=== PATIENT | female | born 1940 ===

== ENCOUNTER → 2023-12-09 12:29 | Outpatient (REF) | payer OTHER, SELFPAY | LOC: MRI 3T 12:29 | PROVIDERS: ATTENDING PHYSICIAN Internal Medicine | DX: M71.22 Synovial cyst of popliteal space [Baker], left knee (principal) | CPT/HCPCS: 73721 ==

== ENCOUNTER 2024-04-03 18:30 | Emergency (ER) | payer OTHER, SELFPAY ==
[2024-04-03 18:35] VITALS: BP 179/113; BMI 20.1
[2024-04-03 18:47] LABS: % Basophils 0.5 % (0-2); % Immature Granulocytes 0.4 % (0-0.5); % Lymphocytes 23.4 % (20.5-51.1); % Monocytes 6.6 % (1.7-9.3); % Neutrophils 68.1 % (42.2-75.2); Absolute Basophils 0.1 10^3/uL (0-0.2); Absolute Eosinophils 0.1 10^3/uL (0-0.7); Absolute Lymphocytes 2.6 10^3/uL (1.2-3.4); Absolute Monocytes 0.7 10^3/uL (0.1-0.6); Absolute Neutrophils 7.6 10^3/uL (1.4-6.5); Hemoglobin 12.2 g/dL (12.0-16.0); Mean Corp Hgb Conc. 33.9 g/dL (33.0-37.0); Mean Corpuscular Hgb 27.8 pg (27.0-31.0); Mean Platelet Volume 9.7 fL (7.4-10.4); Nucleated Red Blood Cells % 0 %; Platelet Count 188 10^3/uL (130-400); Red Blood Cell Count 4.39 10^6/uL (4.20-5.40); Red Cell Dist. Width 13.2 % (11.5-14.5); White Blood Cell Count 11.1 10^3/uL (4.8-10.8)
[2024-04-03 18:54] VITALS: BP 159/113
[2024-04-03 19:01] LABS: ALT (SGPT) 20 U/L (0-35); AST (SGOT) 28 U/L (14-36); Albumin 4.5 g/dl (3.5-5.0); Alkaline Phosphatase 66 U/L (38-126); Blood Urea Nitrogen 17 mg/dl (7-17); Calcium 9.4 mg/dl (8.4-10.2); Carbon Dioxide 28 mmol/L (22-30); Chloride 96 mmol/L (98-107); Estimated Creatinine Clearance 43 ml/min; Glucose 97 mg/dl (70-99); Potassium 3.2 mmol/L (3.5-5.1); Sodium 134 mmol/L (135-145); Total Protein 6.8 g/dl (6.3-8.2); eGFR > 60.00
[2024-04-03 19:02] LABS: Lipase 53 U/L (23-300)
--- NOTE | 2024-04-03 19:05 | ED.GENMED ---
Addendum entered and electronically signed by Ofelia Rose NP 04/04/24 08:41:
Pt called asking what she could do about her constipation. Discussed all options: MOM, Bahman, Miralax, Metamucil, Mg Sulfate, to try, she denies abdominal pain but still has some pain across her mid back. CT yesterday showed no aortic dissection,
showed large volume of stool throughout the colon. Had small BM 2 days ago. She was appreciative of the information and will f/u with PCP if no results
Original Note:
History of Present Illness
<Marixa Miner PA-C - Last Filed: 04/03/24 22:08>
General
Chief Complaint: Abdominal Pain
Source: patient
Exam Limitations: none
Time Seen by Provider: 04/03/24 18:34
Nursing documentation reviewed up to this point in time: agreed with
History of Present Illness
History of Present Illness:
This is an 83-year-old female with a past medical history of rosacea on chronic doxycycline presenting to emergency department today with epigastric abdominal pain that radiates up into the chest. Patient states that this started around 4 hours ago.
Patient states that she was just relaxing at home when it happened and it was very sudden in onset. She rates her pain a 7/10. Patient also states that she has associated lower back pain. Patient also notes some mild associated nausea and
constipation but no vomiting, diarrhea. She denies shortness of breath, paresthesias, difficulty ambulating, syncopal episodes, melena. Of note, patient had surgery on her finger a few weeks ago and has been using aspirin, alieve multiple times
throughout the day, and daily to help manage her pain.
Review of Systems
<Marixa Miner PA-C - Last Filed: 04/03/24 22:08>
Review of Systems
All Other Systems: ROS reviewed and negative except as documented in HPI and ROS
Phy Exam
<Marixa Miner PA-C - Last Filed: 04/03/24 22:08>
Physical Exam
Physical Exam:
Vitals: Patient is acutely hypertensive
General: Patient well appearing in no acute distress
Skin: Warm and dry, no rashes or lesions
Head: Normocephalic, atraumatic
Eyes: Sclera non-icteric, EOMs intact, PERRLA.
Cardiac: Regular rate and rhythm, no murmurs. No tenderness to palpation of the external chest wall.
Pulm: Normal respiratory effort, no wheezes, rales, rhonchi
Abdomen: No abdominal tenderness to palpation, no pulsatile abdominal mass.
Musculoskeletal: No midline tenderness of the lumbar spine, no palpable deformities, no paraspinal tenderness.
Neuro: CN II-XII intact, no focal neurologic deficits.
Psychiatric: Appropriate mood and affect.
Course
<Marixa Miner PA-C - Last Filed: 04/03/24 22:08>
Orders/Labs/Results
Orders:
Orders
04/03/24 18:34
EKG [Electrocardiogram (*1)] Urgent
Reason for Study: Abdominal Pain
IV Insert/Care/Rem.- Treatment PRN
04/03/24 18:35
EKG- Treatment ONCE
04/03/24 18:38
Complete Blood Count/With Diff Urgent
Comprehensive Metabolic Panel Urgent
Lipase Urgent
Urinalysis Reflex To Culture Urgent
Date Specimen was Collected: 04/03/24
Time Specimen was Collected: 18:34
Urine Microscopic Reflex Cult Urgent
Urine Culture Urgent
RACHEL Source: U
Specimen Description:
Date Specimen was Collected: 04/03/24
Time Specimen was Collected: 18:34
04/03/24 18:41
Troponin I Urgent
04/03/24 18:57
CT Angio Abd/Pelvis w/wo IV [CT Abd/pelvis Angio W/wo Iv] Urgent
Comment:
Reason For Exam: epigastric abdominal pain radiating into chest
04/03/24 19:18
Acetaminophen [Tylenol] 1,000 mg PO NOW STA
04/03/24 20:59
EKG- Treatment ONCE
04/03/24 21:18
Troponin I Urgent
04/03/24 21:40
Electrocardiogram (*1) Urgent
Reason for Study: Chest Pain
Abnormal Lab Results
04/03/24
18:38
WBC 11.1 H 10^3/uL
(4.8-10.8)
Hct 36.0 L %
(37.0-47.0)
Absolute Neuts (auto) 7.6 H 10^3/uL
(1.4-6.5)
Absolute Monos (auto) 0.7 H 10^3/uL
(0.1-0.6)
Sodium 134 L mmol/L
(135-145)
Potassium 3.2 L mmol/L
(3.5-5.1)
Chloride 96 L mmol/L
(98-107)
Urine Ketones Trace A
(Negative)
Ur Occult Blood Reflex 2+ A
(Negative)
Leukocyte Esterase Rfl 1+ A
(Negative)
Urine RBC 3-6 A /HPF
(0-2)
Urine Bacteria (Reflex) Few A
(Negative)
04/03/24 18:38
04/03/24 18:38
Vital Signs
Initial and Last Documented VS:
Initial Vital Signs
Temp Pulse Resp BP Pulse Ox
98.5 F 95 17 179/113 98
04/03/24 18:35 04/03/24 18:35 04/03/24 18:35 04/03/24 18:35 04/03/24 18:35
Last Documented Vital Signs
Temp Pulse Resp BP Pulse Ox
98.5 F 83 15 139/99 97
04/03/24 18:35 04/03/24 21:15 04/03/24 21:15 04/03/24 20:42 04/03/24 19:45
<Vahe Vuong, DO - Last Filed: 04/03/24 21:09>
Orders/Labs/Results
Orders:
Orders
04/03/24 18:34
EKG [Electrocardiogram (*1)] Urgent
Reason for Study: Abdominal Pain
IV Insert/Care/Rem.- Treatment PRN
04/03/24 18:35
EKG- Treatment ONCE
04/03/24 18:38
Complete Blood Count/With Diff Urgent
Comprehensive Metabolic Panel Urgent
Lipase Urgent
Urinalysis Reflex To Culture Urgent
Date Specimen was Collected: 04/03/24
Time Specimen was Collected: 18:34
Urine Microscopic Reflex Cult Urgent
Urine Culture Urgent
RACHEL Source: U
Specimen Description:
Date Specimen was Collected: 04/03/24
Time Specimen was Collected: 18:34
04/03/24 18:41
Troponin I Urgent
04/03/24 18:57
CT Angio Abd/Pelvis w/wo IV [CT Abd/pelvis Angio W/wo Iv] Urgent
Comment:
Reason For Exam: epigastric abdominal pain radiating into chest
04/03/24 19:18
Acetaminophen [Tylenol] 1,000 mg PO NOW STA
04/03/24 20:59
EKG- Treatment ONCE
04/03/24 21:18
Troponin I Urgent
04/03/24 21:40
Electrocardiogram (*1) Urgent
Reason for Study: Chest Pain
Abnormal Lab Results
04/03/24
18:38
WBC 11.1 H 10^3/uL
(4.8-10.8)
Hct 36.0 L %
(37.0-47.0)
Absolute Neuts (auto) 7.6 H 10^3/uL
(1.4-6.5)
Absolute Monos (auto) 0.7 H 10^3/uL
(0.1-0.6)
Sodium 134 L mmol/L
(135-145)
Potassium 3.2 L mmol/L
(3.5-5.1)
Chloride 96 L mmol/L
(98-107)
Urine Ketones Trace A
(Negative)
Ur Occult Blood Reflex 2+ A
(Negative)
Leukocyte Esterase Rfl 1+ A
(Negative)
Urine RBC 3-6 A /HPF
(0-2)
Urine Bacteria (Reflex) Few A
(Negative)
04/03/24 18:38
04/03/24 18:38
Vital Signs
Initial and Last Documented VS:
Initial Vital Signs
Temp Pulse Resp BP Pulse Ox
98.5 F 95 17 179/113 98
04/03/24 18:35 04/03/24 18:35 04/03/24 18:35 04/03/24 18:35 04/03/24 18:35
Last Documented Vital Signs
Temp Pulse Resp BP Pulse Ox
98.5 F 83 15 139/99 97
04/03/24 18:35 04/03/24 21:15 04/03/24 21:15 04/03/24 20:42 04/03/24 19:45
<Marixa Miner PA-C - Last Filed: 04/03/24 22:08>
MDM/Problems Addressed
Differential Diagnosis Includes:
ddx AAA, gastritis, duodenitis, ACS, constipation, lumbar muscular sprain/strain,
MDM/Problems Addressed:
Chest pain/epigastric pain:
This is an 83-year-old female with a past medical history of rosacea on chronic doxycycline presenting to emergency department today with epigastric abdominal pain that radiates up into the chest. This was associated with low back pain as well.
Considering patient's acute hypertension, sudden severe onset of pain associated with back pain, CT scan of the abdomen and pelvis with IV contrast was performed which was negative for AAA or other acute intraabdominal pathology. Gastritis certainly
on the differential considering patient's recent frequent daily NSAID use. The daily naproxen could also be responsible for her elevated pressures today. Patient was given 1g of Tylenol. On reevaluation, her abdomen pain and chest pain subsided and
her BP came down. Doubt cardiac cause but will repeat troponin and EKG. Care transferred to Dr. Vuong at this point. Patient still complains of back pain, likely musculoskeletal in nature.
Acute Exacerbation and/or Progression of Chronic Illness:
n/a
<JARED Lopez Last Filed: 04/03/24 22:08>
*Pulse Oximetry
Patient hypoxic: no
*EKG
Interpreted by ED Provider?: Yes
EKG Intrepretation Date: 04/03/24
Interpretation: abnormal
Comparison EKG: no comparison EKG present
Heart Rate: 75
Rate: normal
Rhythm: sinus
Interval: normal interval and normal QT interval
QRS Pattern: normal QRS
*Repair Mechanic Interpretation
Rate: normal
Interpretation: normal
Heart Rate: 80
Rhythm: sinus
*Critical Care Note
Total Time (30-74mins, 75-104mins- exclusive of procedures): Not Applicable
Data Reviewed
Review of Other/Old Records Reveals: Records (no previous ER records to review) and Discharge Summary (no discharge summaries in [facility] to review)
Source: patient and records
Prescriptions/Medications Considered But Not Given:
Considered PPI/Carafate
Further Testing Considered But Not Given:
n/a
<JARED Lopez Filed: 04/03/24 22:08>
Patient Management
Social determinants of health affecting care: Strong social support
Escalation/DeEscalation of care consider admission/obs:
admit not indicated
<Marixa Miner PA-C - Last Filed: 04/03/24 22:08>
Update Note
Update Note:
8:56 pm-- Patient's chest pain and abdominal pain has completely resolved. Patient now just complains of some mild back pain. Will plan for repeat troponin and EKG. Care transferred to Dr. Vuong.
ED Attending Note
<Marixa Miner PA-C - Last Filed: 04/03/24 22:08>
-
Portions of this chart may have been created with voice recognition software.� Occasional wrong word or��sound alike� substitutions may have occurred due to the inherent limitations of voice recognition software.
<Vahe Vuong DO - Last Filed: 04/03/24 21:09>
ED Attending Note
Patient seen and examined by attending physician: Yes
I performed the substantive portion of visit, reviewed & personally made and approve the management plan that is documented in note by myself or MATT.: Yes
Discharge Plan
Departure
Condition: Good
Discharge Problem:
Back pain
Instructions: Back Pain, BLOOD PRESSURE
Referrals:
Panchito Rizzo MD [Family Provider] -
Activity Restrictions/Additional Instructions:
Your blood pressure was elevated today. Please schedule a follow up appointment with your primary care provider to address this issue.
The next time you can take Tylenol is 11:18 pm. Tomorrow, you can take one 325 mg tablet to 1 g orally every 4-6 hours as needed. Do not exceed more than 1 g in a single dose. Do not exceed more than 4 g in 24 hours.
Please return to the emergency department should you experience chest pain again, shortness of breath, persistent abdominal pain, intractable vomiting, fevers or chills, weakness, difficulty breathing, confusion, lightheadedness, syncopal episodes,
difficulty ambulating, or any other signs or symptoms concerning to you.
Interventions
Interventions:
*General Assessment Last Done: 04/03/24 18:35
*Neglect/Abuse Screening Last Done: 04/03/24 18:35
ED- Fall Risk Assessment Last Done: 04/03/24 18:47
PM-Ywdjti-Pdceiqjldf Assessment Last Done: 04/03/24 18:47
Discharge Date and Time
Print Language: LITHUANIAN
[2024-04-03 19:12] LABS: Troponin I < 0.012 ng/ml
[2024-04-03 19:19] VITALS: BP 166/100
[2024-04-03 19:21] LABS: Urine Albumin Negative (Neg - Trace); Urine Bilirubin Negative (Negative); Urine Character Clear (Clear); Urine Color Yellow; Urine Glucose Negative (Negative); Urine Ketone Trace (Negative); Urine Leukocyte 1+ (Negative); Urine Nitrite Negative (Negative); Urine Occult Blood 2+ (Negative); Urine Urobilinogen Negative (Neg - 1+)
[2024-04-03] MEDS: TYLENOL 1000 MG PO (19:37)
[2024-04-03 19:40] LABS: Urine Bacteria Few (Negative)
[2024-04-03 20:42] VITALS: BP 139/99
[2024-04-03 21:50] LABS: Troponin I < 0.012 ng/ml
[2024-04-03 22:09] VITALS: BP 140/97
== END 2024-04-03 22:26 | disposition home or self-care (01) ==
LOC: EMR 18:30
PROVIDERS: Physician Assistant; EMERGENCY PHYSICIAN Emergency Medicine; FAMILY PHYSICIAN Internal Medicine
DX: M54.50 Low back pain, unspecified (principal); R10.13 Epigastric pain; R07.89 Other chest pain; R11.0 Nausea; K59.00 Constipation, unspecified; L71.9 Rosacea, unspecified; Z98.890 Other specified postprocedural states; Z88.0 Allergy status to penicillin
CPT/HCPCS: 99285; 74174; 80053; 81003; 81015; 83690; 84484; 85025; 87086; 93005; Q9967

== ENCOUNTER 2024-04-11 21:43 | Emergency (ER) | payer OTHER, SELFPAY ==
[2024-04-11 21:45] VITALS: BP 176/99
[2024-04-12] MEDS: FLEET PHOSPHATE ENEMA-ADULT 135 ML RECTAL (00:12)
--- NOTE | 2024-04-12 00:42 | ED.GENMED ---
History of Present Illness
General
Chief Complaint: Back Pain
Source: patient
Exam Limitations: none
Time Seen by Provider: 04/11/24 23:09
Nursing documentation reviewed up to this point in time: agreed with
History of Present Illness
History of Present Illness:
Patient diagnosed with lumbar compression fracture recently, taking tramadol along with other pain medications prescribed by her primary care physician, presents ED secondary to continual pain. In addition, patient reports that x-ray as an
outpatient also revealed significant constipation, and states that she has not had normal bowel movement recently. However, patient denies fever or chills. Denies abdominal pain. Denies nausea vomiting. Denies loss of appetite.
Review of Systems
Review of Systems
Allergies reviewed?: Yes
All Other Systems: ROS reviewed and negative except as documented in HPI and ROS
Constitutional: Reports no symptoms
Cardiac: Reports no symptoms
ABD/GI: Reports constipated; Denies abdominal pain, vomiting or diarrhea
: Reports no symptoms; Denies incontinence
Musculoskeletal: Reports back pain
Skin: Reports no symptoms
Neurological: Reports no symptoms; Denies weakness
Phy Exam
Physical Exam
Physical Exam:
Physical Exam
General: no apparent distress, not acutely ill. afebrile
Head: nc/at. eomi
Neck: supple. no meningeal signs.
Abdomen: normal bowel sounds. not tender.
Neuro: alert and oriented. no focal neurological deficits
Skin: no rash
Psychiatric: well kept. interactive and cooperative
Extremities: no edema. no calf tenderness.
Course
Orders/Labs/Results
Orders:
Orders
04/12/24 00:05
Phosphate Enema [Fleet Phosphate Enema-Adult] 135 ml RECTAL NOW STA
04/12/24 00:49
Magnesium Citrate [Citroma] 300 ml PO ONCE ONE
Vital Signs
Initial and Last Documented VS:
Initial Vital Signs
Temp Pulse Resp BP Pulse Ox
98.3 F 100 20 176/99 99
04/11/24 21:45 04/11/24 21:45 04/11/24 21:45 04/11/24 21:45 04/11/24 21:45
Last Documented Vital Signs
Temp Pulse Resp BP Pulse Ox
98.3 F 97 20 144/97 100
04/11/24 21:45 04/12/24 01:00 04/11/24 21:45 04/12/24 01:00 04/12/24 01:00
MDM/Problems Addressed
MDM/Problems Addressed:
Patient with continued back pain secondary to lumbar compression fracture. Advised to continue take already prescribed medication, along with discussion with her primary care physician about potential vertebroplasty, if symptoms persists. In
addition, patient will be given negative citrate to be taken at home, along with recommendation to try MiraLAX as an outpatient. Patient otherwise is afebrile, hemodynamically stable, neurologically intact, and is able to ambulate with steady gait
without assistance, at time of discharge, to the care of her family.
*Critical Care Note
Total Time (30-74mins, 75-104mins- exclusive of procedures): Not Applicable
ED Attending Note
-
Portions of this chart may have been created with voice recognition software.� Occasional wrong word or��sound alike� substitutions may have occurred due to the inherent limitations of voice recognition software.
Discharge Plan
Departure
Patient Disposition: Home (Routine Discharge)
Date of Disposition: 04/12/24
Time of Disposition: 00:42
Patient with high blood pressure during this ER visit?: Yes
Condition: Good
Discharge Problem:
Constipation, Back pain
Instructions: Vertebroplasty and Kyphoplasty, Constipation, Adult ED, Back Pain
Referrals:
Panchito Rizzo MD [Family Provider] -
Activity Restrictions/Additional Instructions:
As discussed, please follow-up with your primary care physician for further evaluation and treatment. In the meantime, please consider taking MiraLAX [id number] for constipation.
Interventions
Interventions:
*Risk Screen - Suicide Last Done: 04/11/24 21:45
*General Assessment Last Done: 04/11/24 21:45
*Neglect/Abuse Screening Last Done: 04/11/24 21:45
ED- Fall Risk Assessment Last Done: 04/12/24 01:11
*ED COVID-19 Vaccine History Last Done: 04/12/24 01:11
*Nursing Disposition Last Done: 04/12/24 01:11
Discharge Date and Time
Discharge Date/Time: 04/12/24 01:11
Print Language: MALIAN
[2024-04-12] MEDS: CITROMA 300 ML PO (00:59)
[2024-04-12 01:00] VITALS: BP 144/97
== END 2024-04-12 01:11 | disposition home or self-care (01) ==
LOC: EMR 21:43
PROVIDERS: EMERGENCY PHYSICIAN Emergency Medicine; FAMILY PHYSICIAN Internal Medicine
DX: K59.00 Constipation, unspecified (principal); M54.9 Dorsalgia, unspecified; R03.0 Elevated blood-pressure reading, without diagnosis of hypertension; M48.56XA Collapsed vertebra, not elsewhere classified, lumbar region, initial encounter for fracture; Z88.0 Allergy status to penicillin
CPT/HCPCS: 99283

== ENCOUNTER 2024-04-28 15:03 | Emergency (ER) | payer OTHER, SELFPAY ==
[2024-04-28 15:04] VITALS: BP 163/96
--- NOTE | 2024-04-28 15:48 | EDRN ---
Shirley Lacy PA in room w/ pt at this time.
--- NOTE | 2024-04-28 15:50 | ED.GENMED ---
History of Present Illness
General
Chief Complaint: Back Pain
Time Seen by Provider: 04/28/24 15:37
History of Present Illness
History of Present Illness:
83 yo female presents to the Emergency Department for evaluation of increased low back pain after a fall. Pt sustained a L1 compression fx last month, has been managing pain w/ regimen including tramadol, ibuprofen and acetaminophen. Fell yesterday
while trying to give herself an enema, pain worsened. No LE paresthesias or weakness. No urinary difficulties.
Review of Systems
Review of Systems
Allergies reviewed?: Yes
All Other Systems: ROS reviewed and negative except as documented in HPI and ROS
Phy Exam
Physical Exam
Physical Exam:
GEN: Well appearing, NAD, WDWN
HEENT: Oral mucosa moist, no scleral icterus
Cardiac: Regular rate
Lung: No respiratory distress, no tachypnea
MSK: No gross deformity or injuries. Tenderness to the lumbar midline bony processes. Normal BLE ROM and strength in all prasad
Skin: Good color, no pallor or jaundice, no rashes
Neuro: AO x3, moves all extremities freely
Psych: Calm, cooperative
Course
Orders/Labs/Results
Orders:
Orders
04/28/24 15:59
CR Lumbar Spine Comp Min 4 Vw* Urgent
Comment:
Reason For Exam: fall, known L1 fx
04/28/24 16:00
Lidocaine [Lidocaine 4% Patch] 1 patch TOPICAL NOW STA
Apply Lidocaine patch(s) to:: lumbar
Vital Signs
Initial and Last Documented VS:
Initial Vital Signs
Temp Pulse Resp BP Pulse Ox
97.7 F 95 20 163/96 98
04/28/24 15:04 04/28/24 15:04 04/28/24 15:04 04/28/24 15:04 04/28/24 15:04
Last Documented Vital Signs
Temp Pulse Resp BP Pulse Ox
97.7 F 87 16 153/94 97
04/28/24 15:04 04/28/24 16:37 04/28/24 16:37 04/28/24 16:37 04/28/24 16:37
MDM/Problems Addressed
MDM/Problems Addressed:
Imaging reveals progression of L1 compression fracture. She has no lower extremity neurologic symptoms warranting hospitalization at this time. Encouraged her to follow-up with her primary care physician as she will likely need outpatient IR
evaluation for vertebroplasty given the rapid progression
*Critical Care Note
Total Time (30-74mins, 75-104mins- exclusive of procedures): Not Applicable
ED Attending Note
-
Portions of this chart may have been created with voice recognition software.� Occasional wrong word or��sound alike� substitutions may have occurred due to the inherent limitations of voice recognition software.
Discharge Plan
Departure
Patient Disposition: Home (Routine Discharge)
Date of Disposition: 04/28/24
Time of Disposition: 17:01
Patient with high blood pressure during this ER visit?: No
Discharge Problem:
Closed compression fracture of L1 vertebra
Instructions: Low Back Pain ED
Prescriptions:
New
oxycodone-acetaminophen [Percocet] 5-325 mg tablet
1 tab PO Q6HPRN PRN (Reason: pain) Qty: 10 0RF
Referrals:
Panchito Rizzo MD [Family Provider] -
Activity Restrictions/Additional Instructions:
Please discuss physical therapy as well as a referral for a vertebroplasty with your primary care physician
Interventions
Interventions:
*Risk Screen - Suicide Last Done: 04/28/24 15:04
*General Assessment Last Done: 04/28/24 15:04
*Neglect/Abuse Screening Last Done: 04/28/24 15:04
ED- Fall Risk Assessment Last Done: 04/28/24 16:12
*ED COVID-19 Vaccine History Last Done: 04/28/24 16:12
*Nursing Disposition Last Done: 04/28/24 17:13
ED-Musculoskeletal Assessment Last Done: 04/28/24 16:12
Discharge Date and Time
Discharge Date/Time: 04/28/24 17:14
Print Language: YORUBA
[2024-04-28] MEDS: LIDOCAINE 4% PATCH 1 PATCH TOPICAL (16:11)
[2024-04-28 16:12] VITALS: BMI 19.5
[2024-04-28 16:37] VITALS: BP 153/94
--- NOTE | 2024-04-28 16:40 | EDRN ---
Pt ambulated to BR w/out assist at this time.
--- NOTE | 2024-04-28 17:10 | EDRN ---
Pt states pain is a constant 9/10 and at times grabs her w/ increased pain at 10/10.
== END 2024-04-28 17:14 | disposition home or self-care (01) ==
LOC: EMR 15:03
PROVIDERS: EMERGENCY PHYSICIAN Emergency Medicine; FAMILY PHYSICIAN Internal Medicine
DX: S32.010A Wedge compression fracture of first lumbar vertebra, initial encounter for closed fracture (principal); W19.XXXA Unspecified fall, initial encounter
CPT/HCPCS: 99283; 72110

== ENCOUNTER 2024-12-18 06:32 | Inpatient (IN) | payer OTHER, SELFPAY ==
[2024-12-18] VITALS (24 sets, daily range): BP systolic 127–173; BP diastolic 67–114; BMI 18.9; BMI 17.7
[2024-12-18 04:54] LABS: % Basophils 0.2 % (0-2); % Eosinophils 0.2 % (0-6); % Immature Granulocytes 0.5 % (0-0.5); % Lymphocytes 9.1 % (20.5-51.1); % Monocytes 6.2 % (1.7-9.3); % Neutrophils 83.8 % (42.2-75.2); Absolute Immature Granulocytes 0.1 10^3/uL (0-0.05); Absolute Lymphocytes 1.1 10^3/uL (1.2-3.4); Absolute Monocytes 0.8 10^3/uL (0.1-0.6); Absolute Neutrophils 10.2 10^3/uL (1.4-6.5); Hematocrit 36.1 % (37.0-47.0); Hemoglobin 12.2 g/dL (12.0-16.0); Mean Corp Hgb Conc. 33.8 g/dL (33.0-37.0); Mean Corpuscular Hgb 29.8 pg (27.0-31.0); Mean Corpuscular Volume 88.3 fL (81.0-99.0); Mean Platelet Volume 9.1 fL (7.4-10.4); Nucleated Red Blood Cells % 0 %; Platelet Count 156 10^3/uL (130-400); Red Blood Cell Count 4.09 10^6/uL (4.20-5.40); Red Cell Dist. Width 15.4 % (11.5-14.5); White Blood Cell Count 12.2 10^3/uL (4.8-10.8)
[2024-12-18] MEDS: MORPHINE SULFATE 4 MG IV (05:09)
--- NOTE | 2024-12-18 05:33 | ED.GENMED ---
History of Present Illness
General
Chief Complaint: Fall
Source: patient, spouse and ambulance crew
Exam Limitations: none
Time Seen by Provider: 12/18/24 04:50
Nursing documentation reviewed up to this point in time: agreed with
History of Present Illness
History of Present Illness:
This is an 84-year-old woman who resides at home with her . She has history of osteoporosis, history of L1 compression fracture after a fall April 2024. Continues with some low back pain, follows with pain management, maintained on as needed
oxycodone. Tonight around 9 PM she lost her balance in the kitchen, fell onto her left hip and complains of severe left hip pain, unable to bear weight. She denies head injury, no loss of consciousness, denies headache, denies neck nor increase in
her back pain. Denies weakness nor numbness. After the fall her picked her up and laid her in bed but she has continued with pain, worsened with movement and she presents now via EMS.
She takes no anticoagulants.
Her only prescribed medication is Percocet. Along with this she takes Tylenol versus Advil as needed for her back pain. Generally has no limitations in her ADLs.
Past History
Past History
ED Past Medical History: Other (L1 compression fracture)
Social History
Tobacco: Non-smoker
Alcohol: None
Personal:
Living: with family
Family History
Family History: Other (Noncontributory)
Phy Exam
Physical Exam
Physical Exam:
TRAUMA EXAM:
VITAL SIGNS: Vital signs reviewed, cooperative
DISTRESS: No active disease. 84-year-old woman, thin build, bright and alert, pleasant, appears in no acute distress.
EYES: Pupils reactive, no orbital trauma
NOSE: No deformity or epistaxis
FACE AND SCALP: No scalp or facial trauma, external canals no blood
NECK: Supple nontender
BACK: Back nontender, pelvis stable to compression
RESPIRATORY: No distress, breath sounds normal, no tender chest wall
CARDIAC: No murmur, pulses equal and strong
ABDOMEN: Soft nontender bowel sounds normal
SKIN: Skin intact no bleeding, color normal
EXTREMITIES: Left lower extremity is mildly shortened. Moderate tenderness about the left hip with markedly limited range of motion left hip related to pain. There is no tenderness to the thigh nor knee nor lower leg. Peripheral pulses are full
and equal bilaterally. Distal sensation and strength intact.
NEUROLOGICAL: Alert, oriented, no motor deficits
PSYCH: Mood affect normal
Course
Orders/Labs/Results
Orders:
Orders
12/18/24 04:36
CR Hip - LT w/wo Pel 2-3 Vw* Urgent
Comment:
Reason For Exam: shortening, fall
Include a pelvis x-ray?: Yes
12/18/24 04:42
Type+Screen Urgent
Complete Blood Count/With Diff Urgent
Comprehensive Metabolic Panel Urgent
12/18/24 04:50
Morphine Sulfate 4 mg IV NOW STA
12/18/24 04:54
ABO2 Urgent
BBK Wristband Number:
Associate notified that ABO2 has been ordered: [id number]
Date: 12/18/24
Time: 04:54
Detective ID: [id number]
12/18/24 05:32
Electrocardiogram (*1) Urgent
Reason for Study: PreOp
EKG- Treatment ONCE
Abnormal Lab Results
12/18/24
04:42
WBC 12.2 H 10^3/uL
(4.8-10.8)
RBC 4.09 L 10^6/uL
(4.20-5.40)
Hct 36.1 L %
(37.0-47.0)
RDW 15.4 H %
(11.5-14.5)
Abs Immat Gran (auto) 0.1 H 10^3/uL
(0-0.05)
Absolute Neuts (auto) 10.2 H 10^3/uL
(1.4-6.5)
Absolute Lymphs (auto) 1.1 L 10^3/uL
(1.2-3.4)
Absolute Monos (auto) 0.8 H 10^3/uL
(0.1-0.6)
Neutrophils % 83.8 H %
(42.2-75.2)
Lymphocytes % 9.1 L %
(20.5-51.1)
12/18/24 04:42
Vital Signs
Initial and Last Documented VS:
Initial Vital Signs
Temp
98.2 F
12/18/24 04:28
Last Documented Vital Signs
Temp Pulse Resp BP Pulse Ox
98.2 F 96 15 151/107 96
12/18/24 04:43 12/18/24 04:43 12/18/24 04:43 12/18/24 04:43 12/18/24 04:43
MDM/Problems Addressed
Differential Diagnosis Includes:
Significant concern for left hip fracture. Other consideration is pelvic fracture.
Will medicate for pain and check x-ray.
Routine labs are pending.
Chronic conditions affecting care:
Osteoporosis, history of L1 compression fracture April 2024
*Radiology
Radiology exam reviewed: preliminary read by ED provider (X-ray shows left femoral neck fracture.)
*Pulse Oximetry
Patient hypoxic: no
*Critical Care Note
Total Time (30-74mins, 75-104mins- exclusive of procedures): Not Applicable
Update Note
Update Note:
05:40
X-ray shows left femoral neck fracture.
Will admit to hospitalist service.
Orthopedics has been notified.
Will plan for preop EKG.
ED Attending Note
-
Portions of this chart may have been created with voice recognition software.� Occasional wrong word or��sound alike� substitutions may have occurred due to the inherent limitations of voice recognition software.
Discharge Plan
Departure
Patient Disposition: Admit
Date of Disposition: 12/18/24
Time of Disposition: 05:34
Admit to: Med/Surg
Admit to doctor: April
Presentation/result/management discussed w/ accepting MD/DO: Hospitalist
Condition: Fair
Discharge Problem:
acute left femoral neck fracture
Prescriptions:
No Action
oxycodone-acetaminophen [Percocet] 5-325 mg tablet
1 tab PO Q6HPRN PRN (Reason: pain) Qty: 10 0RF
Referrals:
UNKNOWN - PT DOES,NOT KNOW [Family Provider] -
Interventions
Interventions:
*Risk Screen - Suicide Last Done: 12/18/24 04:28
*General Assessment Last Done: 12/18/24 04:28
*Neglect/Abuse Screening Last Done: 12/18/24 04:28
*ED- Fall Risk Assessment Last Done: 12/18/24 04:28
*ED COVID-19 Vaccine History Last Done: 12/18/24 04:28
ED-Musculoskeletal Assessment Last Done: 12/18/24 04:47
ED- Neurological Assessment Last Done: 12/18/24 04:47
ED-Skin Assessment Last Done: 12/18/24 04:47
Discharge Date and Time
Print Language: [id number]
--- NOTE | 2024-12-18 06:07 | HPS.HSE ---
Family Physician
-
Family Physician: NOT KNOW UNKNOWN - PT DOES
Chief Complaint
-
Fall and left hip pain
History of Present Illness
This is a 84-year-old female with no significant past medical history, only notable for right foot surgery, fifth digit of the right hand surgery and bilateral cataract surgery, chronic back pain with chronic L1 compression fracture on opioids
presents to the emergency department following a fall at home.
Patient was in usual state of health. She reports that she does feel slightly more unsteady these days. She denies feeling dizzy. She denies lightheadedness. She denies any palpitations shortness of breath or chest pain. She apparently was
cleaning in the kitchen when she turned around and tripped on a sofa falling on her left side. She had immediate pain and was unable to get up by herself. She denies any loss of consciousness. She denies smacking her head. She denies any
numbness or weakness. was able to pick her up and lay on the bed but she had continued pain that was worse with any movement. EMS was called and patient brought to the emergency department.
In the emergency department she was afebrile, blood pressure was 150/100 and she was satting 96%. ECG showed a normal sinus rhythm. CBC was unremarkable. Chemistries are pending. X-ray shows left hip intertrochanteric fracture.
Medical History
Past Medical History
Past Medical History: Reports Other
Past Surgical History: Reports Orthopedic (Right fifth finger surgery.) and Other (Bilateral cataract surgery)
Social History
Tobacco: Non-smoker
Alcohol: Occasional
Drug: None
Personal:
Living: With Family
Employment: Retired
Family History
Family History: Not pertinent
Allergies / Home Medications
Allergies reflects when Allergies were last updated in [facility].
Home Medications with original date entered in [facility]
Allergy/Medication List:
Allergies
Allergy/AdvReac Type Severity Reaction Status Date / Time
Penicillins Allergy Unknown Verified 12/18/24 05:29
Home Medications
oxycodone-acetaminophen 5 mg-325 mg tablet (Percocet) 1 tab PO Q6HPRN PRN pain #10 tabs 04/28/24
Review of Systems
-
History Source: Patient
Constitutional: Reports No Symptoms
EENT: Reports No Symptoms
Respiratory: Reports No Symptoms
Cardiac: Reports No Symptoms
Abdomen/GI: Reports No Symptoms
: Reports No Symptoms
Musculoskeletal: Reports Joint Pain
Skin: Reports No Symptoms
Neurological: Reports No Symptoms
Endocrine: Reports No Symptoms
Hematologic/Lymphatic: Reports No Symptoms
Psych: Reports No Symptoms
Physical Exam
Vital Signs
Vital Signs
Temp Pulse Resp BP Pulse Ox
98.2 F 96 15 151/107 96
12/18/24 04:43 12/18/24 04:43 12/18/24 04:43 12/18/24 04:43 12/18/24 04:43
Physical Exam
General: Well Developed, Well Nourished and Pain
HEENT: NormoCephalic, Anicteric, Moist mucous membranes and Atraumatic
Respiratory: Clear
Cardiac: S1/S2 and Regular Rhythm
Breast: Deferred by me
GI: Soft, Non Tender, Non Distended and Normal Bowel Sounds
Rectal: Deferred by Provider
Genito-urinary: Deferred by me
Musculoskeletal: No Clubbing, No Cyanosis, No Edema and Other (Slight limb length asymmetry. 2+ pedal pulses bilaterally. No noticeable malrotation of the lower extremities.)
Skin: Warm and Dry
Neuro: AO x 3 and Nonfocal/grossly intact
Hematologic/Lymphatic: No Lymphadenopathy
Psych: Calm
Laboratory Results
-
12/18/24 04:42
Data Reviewed
-
Diagnostic Radiology: Image Personally Visualized and interpreted
Medical Tests (Nuc Med, Echo, EKG etc): Image Personally Visualized and interpreted
Lab Data: Labs Reviewed by me
Old Records: Reviewed
Impression/Plan
-
IMPRESSION:
Trip and fall with a left hip intertrochanteric fracture. No loss of consciousness. She is not on any anticoagulation. Patient otherwise in normal state of health.
PLAN:
Fracture -
- admit to med/surg
- npo for now
- pain control
- maintenance fluids
- antiemetics
- PT eval
- ortho aware and consulted
DVT PPX - lovenox sq
Code status - Full Code
[2024-12-18 06:25] LABS: ALT (SGPT) 26 U/L (0-35); AST (SGOT) 27 U/L (14-36); Albumin 4.2 g/dl (3.5-5.0); Alkaline Phosphatase 55 U/L (38-126); Blood Urea Nitrogen 20 mg/dl (7-17); Calcium 9.4 mg/dl (8.4-10.2); Carbon Dioxide 30 mmol/L (22-30); Chloride 101 mmol/L (98-107); Estimated Creatinine Clearance 48 ml/min; Glucose 139 mg/dl (70-99); Potassium 3.1 mmol/L (3.5-5.1); Sodium 138 mmol/L (135-145); Total Bilirubin 0.9 mg/dl (0.2-1.3); Total Protein 6.5 g/dl (6.3-8.2); eGFR > 60.00
--- NOTE | 2024-12-18 07:06 | W.PN.UPDATE ---
Update Note
Progress Note Update
Full orthopedic consult dictated:
Dx: Left hip femoral neck fracture
Plan: Left hip hemiarthroplasty later today. NPO, ancef, antibiotic/TXA irrigation to OR
[2024-12-18] MEDS: DILAUDID 0.5 MG IV ×2 (07:29→08:26)
[2024-12-18] MEDS: D5LR 1000 IV ×2 (07:30→18:33)
[2024-12-18] MEDS: KCL 270 MEQ IV (07:51)
--- NOTE | 2024-12-18 07:54 | W.PN.HOSP.TC ---
Today's Communication/Plan
-
see PN
Assessment / Plan
Assessment / Plan
84yo F with no significant PMHX came after the fall when she lost balance (without vertigo or dizziness) in her kitchen. She did not have prodrome or syncope. found L hip femoral neck Fx, planned for L hip hemiarthroplasty by Ortho on 12/18/24
A/P:
#L hip femoral Fx
Ortho for intervention
Pain mgmt
PT/OT afterwards
Patient without known cardiac disease, non-smoker, EKG showed possible pulmonary disease pattern, so has low-moderate risk for intermediate risk procedure, needs Chest XR, but will not preclude surgical intervention, can go for procedure without
additional tests or changes in mgmt
#L1 compression Fx, old
PT/OT
Outpatient DEXA for osteoporosis assessment with PCP
#Leukocytosis
stress-induced
follow trend
#Hypokalemia
replete and follow
check magnesium
#elevated BP without diagnosis of HTN
follow trend while inpatient as on admission elevated most likely 2/2 pain
DVT ppx as per ortho
Full code
I have spent at least 56min reviewing chart, test results, communication with consultants and providing direct patient care
Anticipated Discharge: 24 - 48 hours
Subjective/Interval History
-
Date of Service: December 18, 2024
Objective Data
-
Labs:
Laboratory Results
12/18/24
04:42
WBC 12.2 H
Hgb 12.2
Hct 36.1 L
Plt Count 156
Sodium 138
Potassium 3.1 L
Chloride 101
Carbon Dioxide 30
BUN 20 H
Creatinine 0.6
Glucose 139 H
Calcium 9.4
Total Bilirubin 0.9
AST 27
ALT 26
Alkaline Phosphatase 55
Vital Signs:
Vital Signs
Temp Pulse Resp BP Pulse Ox
98.2 F 95 18 146/100 93
12/18/24 04:43 12/18/24 07:00 12/18/24 07:00 12/18/24 07:00 12/18/24 07:26
Review of Systems
-
History Source: Patient
All other systems: Reviewed and negative
Musculoskeletal: Reports Other (LLE pain)
Physical Exam
-
General: No Apparent Distress
HEENT: Normocephalic
Respiratory: Clear to Auscultation
Cardiac: Regular Rhythm
GI: Soft, Nontender and Nondistended
Musculoskeletal: No Clubbing, No Cyanosis and No Edema
Neuro: Awake, Alert, Oriented and AO x 3
Psych: Calm
[2024-12-18 08:23] LABS: Magnesium 2.1 mg/dl (1.6-2.3)
[2024-12-18] MEDS: ZOFRAN 4 MG IV ×2 (08:24→19:58)
--- NOTE | 2024-12-18 08:30 | EDRN ---
IV rate K rider @ 50 ml/hr d/t vein discomfort
[2024-12-18] MEDS: APRESOLINE 5 MG IV (09:17)
[2024-12-18] MEDS: TYLENOL PO ×2 (09:18→20:04)
--- NOTE | 2024-12-18 09:45 | CM ---
Initial assessment completed with 89 yr old via phone
Pharmacy verified: [facility] @ [address] [place] [address]
identified Family Physician: Dr. Rizzo but unable to provide address or phone number
reported that they live in [place] that has a basement; 4 steps to enter the home; railing present; bathroom has stall shower with grab bar and seat
At baseline, reported that patient was independent with ambulation and ADLs; drives
NO SNF or Home Health utilization reported
drives
Discharge plan and transport to be determined pending hospital course after hip procedure; CM will monitor for needs and support accordingly
--- NOTE | 2024-12-18 11:13 | W.PN.UPDATE ---
Update Note
Progress Note Update
Acute urinary retention
straight cath for 600ml
most likely exacerbated by pain meds
[place] and TOV after Sx when ambulating
[2024-12-18] MEDS: ROXICODONE 5 MG PO ×2 (12:34→21:44)
[2024-12-18] MEDS: TYLENOL 650 MG PO ×3 (12:35→23:50)
--- NOTE | 2024-12-18 13:53 | PTCARENOTE ---
Just spoke to OR and gave report. Transport coming
--- NOTE | 2024-12-18 14:25 | PTCARENOTE ---
Pt left floor to have her L hip operated on. left the hospital with patients own medication that was brought in.
--- NOTE | 2024-12-18 17:15 | OR.RPT ---
Operative Report
Operative Report
Orthopaedic Surgery Operative Note
DATE OF OPERATION: 12/18/2024
PREOPERATIVE DIAGNOSES: Displaced femoral neck fracture, left
POSTOPERATIVE DIAGNOSES: Same
OPERATION PERFORMED: Left hip hemiarthroplasty
SURGEON: Mohan Waldron MD
CLOTHING WORKER: Rafi Portillo PA-C who helped with patient and limb positioning and retraction
ANESTHESIA: General
COMPLICATIONS: None.
ESTIMATED BLOOD LOSS: 50 mL.
DRAINS: None
SPECIMEN: None
FINDINGS: Displaced fracture of the femoral neck
IMPLANTS: [employer] stem size 12, standard offset, Size 44mm Endo unipolar head, DJO bone cement, [place] cement restrictor, distal centralizer
INDICATIONS: The patient presented to the emergency department after a fall sustained overnight with new onset hip pain. Xrays showed a displaced femoral neck fracture. I discussed treatment options with the patient and discussed that based on the
degree of displacement that fixation of the fracture may have a high risk of complication and failure. I discussed surgical treatment with arthroplasty. Based on the patient's age and activity level, shared decision was to proceed with
hemiarthroplasty. I reviewed the risks, benefits, and alternatives of various treatment options. The patient understood the risks which included, but were not limited to, bleeding, infection, failure to relieve pain, more pain than preop, damage to
blood vessels and nerves, need for reoperation, mechanical failure of the implants, wound healing problems, stiffness, instability, blood clot, pulmonary embolism, myocardial infarction, pneumonia, arrhythmia, CVA, and . The patient accepted
these risks and wished to proceed. All questions were answered, and informed consent was obtained.
PROCEDURE IN DETAIL:
The patient was identified in the preoperative holding area. The left hip was identified as the operative site. The patient was taken in the operating room and transferred to the operative table. General anesthesia was performed. IV antibiotics and
tranexamic acid were administered. The patient was placed in the lateral position with Stulberg hip positioners. Axillary roll was placed. The down leg was well padded. All bony prominences were well padded. The operative limb was prepped and draped
in the usual sterile fashion.
Time out was performed. A posterolateral approach to the hip was used. The skin incision was centered over the greater trochanter. This was taken down sharply through subcutaneous tissues. Meticulous hemostasis was achieved throughout the case with
electrocautery. We split the fascia clinton in line with skin incision. I split the gluteus kerrie bluntly. We cauterized all crossing vessels as we split it. I palpated the sciatic nerve and made sure it was well posterior in the operative field. It
was protected throughout the case.
The posterior anatomy was distorted due to fracture hematoma and swelling. I performed a partial bursectomy to identify the short external rotators. The gluteus medius and minimus were identified and retracted anteriorly. I incised the piriformis
tendon and conjoint tendon at their insertions. These were tagged for later repair. I then performed a trapezoidal capsulotomy. The edges were tagged for later repair.
The femoral neck fracture was identified. The leg was flexed and internally rotated, and a fresh femoral neck cut was performed. The femur was translated anteriorly. Care was taken to preserve the labrum. The femoral head was carefully removed with
a morin and a tenaculum. The head measured to be 44mm. The acetabulum was inspected and noted not to have marked degenerative changes. A trial head was placed in the acetabulum and size 44 had appropriate fit and suction fit.
Attention was turned to the femur. Box osteotome and Charnley awe were used to open the canal. The femur was sequentially broached to size 12 which had appropriate fit and fill. A trial head was placed with standard offset neck and the hip was
reduced. Leg length and offset were checked and found to be appropriate. The hip was taken through complete range of motion and found to be stable in extension, the position of sleep, and at 90 degrees of flexion and internal rotation.
Trials were removed and the femoral canal was prepared with irrigation and ribbon gauze packing sequentially. A cement restrictor was placed into the femoral canal 1cm distal to the tip of the femoral stem. This was measured off the trial femoral
stem. Once the femoral canal was prepared, the cement was mixed. Once doughy in consistency, the cement was pressurized into the canal with a cement gun. The stem was then carefully inserted into the canal with care to minimize rotation or
micromotion. Excess cement was removed. Once the cement was polymerized, the joint was irrigated copiously. The acetabulum was inspected to be free of cement particles and other debris. The final head was impacted onto clean and dry trunion and the
hip was reduced. Leg length and stability were checked again and found to be acceptable. The sciatic nerve was inspected and noted to be free of tension and uninjured.
A dilute betadine soak was performed for approximately 3 minutes, and then the hip was copiously irrigated. I repaired the capsule, piriformis, and conjoint tendon with #2 Ethibond to drill holes in the greater trochanter. Local anesthetic was
injected. The fascia clinton was closed with #1 PDS in running fashion. The subcutaneous tissues were closed with 2-0 PDS in running fashion. The skin was reapproximated with 3-0 Monocryl subcuticular suture. I placed a Prineo dressing followed by a
Mepilex Ag dressing. The patient awoke from anesthesia without difficulty. Sponge and instrument counts were correct x2 at the end of the case.
I was present and participated in the entire procedure. The patient was sent to the recovery room in stable condition.
Blas Waldron MD
--- NOTE | 2024-12-18 17:18 | W.PN.UPDATE ---
Update Note
Progress Note Update
I evaluated the patient at bedside for surgical consult and agree with the consultation note performed by Oliverio Conroy PA-C earlier today. 84-year-old female who sustained a trip and fall yesterday evening. She was brought to the emergency
department noted to have a displaced left femoral neck fracture. She denies prior hip pain. On exam she is comfortably lying in bed. Motor and sensation intact distally. The leg is shortened externally rotated. I discussed with the patient at
length nonoperative and operative treatment options. We discussed left hip hemiarthroplasty to alleviate pain and improve mobility. Shared decision was to proceed with left hip hemiarthroplasty. All questions were answered.
> 75 minutes was spent reviewing the clinical information, evaluating the patient, and formulating clinical plan.
Blas Waldron MD
[2024-12-18] MEDS: ASPIRIN 325 MG PO (18:38)
--- NOTE | 2024-12-18 18:55 | PTCARENOTE ---
Patient transferred to [address] [place] [address] post repair of left hip fracture with left hip arthroplasty.The patient is drowsy but arousable.She is a little loopy still from the medications she received.Neurovascular assessment is good and remains ongoing.The
dressing is intact without drainage.The patient is in her bed with the call garcia in reach.
[2024-12-18] MEDS: COLACE PO (20:03)
[2024-12-18] MEDS: SENOKOT PO (20:04)
[2024-12-18] MEDS: ANCEF 5 IV (23:42)
[2024-12-19] MEDS: DESYREL 12.5 MG PO (01:04)
[2024-12-19 03:23] VITALS: BP 121/71
[2024-12-19] MEDS: TYLENOL PO (03:56)
[2024-12-19 07:05] VITALS: BP 124/73
[2024-12-19 07:05] LABS: ALT (SGPT) 22 U/L (0-35); AST (SGOT) 28 U/L (14-36); Albumin 3.8 g/dl (3.5-5.0); Alkaline Phosphatase 45 U/L (38-126); Blood Urea Nitrogen 16 mg/dl (7-17); Calcium 8.8 mg/dl (8.4-10.2); Carbon Dioxide 30 mmol/L (22-30); Chloride 99 mmol/L (98-107); Estimated Creatinine Clearance 38 ml/min; Glucose 113 mg/dl (70-99); Potassium 3.4 mmol/L (3.5-5.1); Sodium 137 mmol/L (135-145); Total Bilirubin 1.1 mg/dl (0.2-1.3); Total Protein 5.8 g/dl (6.3-8.2); eGFR > 60.00
[2024-12-19 07:14] LABS: % Basophils 0.1 % (0-2); % Immature Granulocytes 0.7 % (0-0.5); % Lymphocytes 10.5 % (20.5-51.1); % Monocytes 7.3 % (1.7-9.3); % Neutrophils 81.4 % (42.2-75.2); Absolute Immature Granulocytes 0.1 10^3/uL (0-0.05); Absolute Lymphocytes 1.1 10^3/uL (1.2-3.4); Absolute Monocytes 0.8 10^3/uL (0.1-0.6); Absolute Neutrophils 8.6 10^3/uL (1.4-6.5); Hematocrit 28.2 % (37.0-47.0); Hemoglobin 10.8 g/dL (12.0-16.0); Mean Corp Hgb Conc. 38.3 g/dL (33.0-37.0); Mean Corpuscular Hgb 37.5 pg (27.0-31.0); Mean Corpuscular Volume 97.9 fL (81.0-99.0); Mean Platelet Volume 9.8 fL (7.4-10.4); Nucleated Red Blood Cells % 0 %; Platelet Count 147 10^3/uL (130-400); Red Blood Cell Count 2.88 10^6/uL (4.20-5.40); White Blood Cell Count 10.6 10^3/uL (4.8-10.8)
--- NOTE | 2024-12-19 07:38 | W.PN.ORTHO ---
Today's Communication / Plan
-
84-year-old female postoperative 1 left hip hemiarthroplasty with Dr. Waldron
-Postoperative antibiotics as ordered
-DVT PPx: ASA 325 mg daily x 30 days unless recommended otherwise per primary
-Pain control with current regimen
-Diet per primary
-Posterior precautions x 6 weeks
-PT/OT/discharge planning
Orthopedic surgery will continue to follow
Assessment
.
Distal Motor Intact: Yes
Dressing:
Clean, dry and intact.
Assessment:
Postoperative x-rays demonstrate left hip hemiarthroplasty without evidence of hardware or osseous complication
Plan
.
Surgery / Date: 12/18/[address] Waldron
Activity:
Out of bed.
PT/OT
Subjective
.
.:
Patient resting comfortably.
Vital Signs and Labs
.
Vital Signs and Labs:
Lab Results
12/19/24 05:05
12/19/24 05:05
Temp Pulse Resp BP Pulse Ox
97.7 F 86 14 121/71 95
12/19/24 03:23 12/19/24 03:23 12/19/24 03:23 12/19/24 03:23 12/19/24 03:23
[2024-12-19 08:10] LABS: Magnesium 2.2 mg/dl (1.6-2.3)
[2024-12-19] MEDS: TYLENOL 650 MG PO ×4 (08:20→20:02)
[2024-12-19] MEDS: SENOKOT 17.2 MG PO (08:20)
[2024-12-19] MEDS: ANCEF 5 IV (08:20)
[2024-12-19] MEDS: ASPIRIN 325 MG PO (08:21)
[2024-12-19] MEDS: KCL 40 MEQ PO (08:21)
[2024-12-19] MEDS: COLACE 100 MG PO (08:30)
--- NOTE | 2024-12-19 10:30 | PN.CDI ---
CDI
- -
CDI:
Physician Documentation Request
Admit Date: 12/18/24 06:32
Dear Doctor Hayden,
Please review the following and provide your response in the progress notes.
Clinical Indicators:
12/18 PROCEDURE: CR Hip - LT w/wo Pel 2-3 Vw*
#...FINDINGS:
#...There is fracture through the neck of the proximal left femur.
#...Diffuse osteopenia is suspected.
#...Some osseous degenerative changes are seen including the lower lumbar spine.
PN, 12/18
#...came after the fall when she lost balance (without vertigo or dizziness) in her kitchen.
#L hip femoral Fx
#L1 compression Fx, old
Please clarify the following regarding the etiology of the left hip fracture....:
Multifactorial, low level trauma and age related osteoporosis
Traumatic fracture only
Other(please specify)
Type Fracture
Age-related With current pathological fx
Drug induced (specify drug) without current pathological fx
Idiopathic
Osteoporosis of disuse
Due to post surgical malabsorption
Post traumatic
Use of terms such as suspected, likely, concern for, or probable (associated with a specific diagnosis that is being evaluated, monitored, or treated as if it exists) are acceptable and can be coded in the inpatient setting, when documented at the
time of discharge.
Thank you,
Alma Schwartz RN BSN CCDS
CDI Specialist
please contact via tiger text
Please use your independent medical judgment in providing your response.
--- NOTE | 2024-12-19 10:41 | PN.CDI ---
CDI
- -
CDI:
Physician Documentation Request
Admit Date: 12/18/24 06:32
Dear Doctor Hayden,
Please review the following and provide your response in the progress notes.
Clinical Indicators:
12/18 OPERATION PERFORMED: Left hip hemiarthroplasty
#...ESTIMATED BLOOD LOSS: 50 mL.
Laboratory Tests
12/18/24 12/19/24
04:42 05:05
Hgb 12.2 10.8 L
Based on the above and your clinical assessment, please clarify, the condition/diagnosis evaluated, monitored and/or treated?
Acute blood loss anemia
Abnormal lab value, clinically insignificant
Other(please specify)
Use of terms such as suspected, likely, concern for, or probable (associated with a specific diagnosis that is being evaluated, monitored, or treated as if it exists) are acceptable and can be coded in the inpatient setting, when documented at the
time of discharge.
Thank you,
Alma Schwartz RN BSN CCDS
CDI Specialist
please contact via tiger text
Please use your independent medical judgment in providing your response.
--- NOTE | 2024-12-19 10:47 | PN.CDI ---
CDI
- -
CDI:
Physician Documentation Request
Admit Date: 12/18/24 06:32
Dear Doctor Hayden,
Please review the following and provide your response in the progress notes.
Clinical Indicators:
Selected Entries
12/18/24
04:27 12/18/24
12:22
Body Mass Index (BMI) 18.9 17.7
Please provide an associated diagnosis related to the BMI, such as:
BMI <19, underweight
BMI is not significant
Other(please specify)
BMI < or = to 19
Underweight
Weight Loss
Cachectic
Anorexia
Use of terms such as suspected, likely, concern for, or probable (associated with a specific diagnosis that is being evaluated, monitored, or treated as if it exists) are acceptable and can be coded in the inpatient setting, when documented at the
time of discharge.
Thank you,
Alma Schwartz RN BSN CCDS
CDI Specialist
please contact via tiger text
Please use your independent medical judgment in providing your response.
[2024-12-19 11:05] VITALS: BP 93/61
--- NOTE | 2024-12-19 11:23 | W.PN.HOSP.TC ---
Addendum entered and electronically signed by Edward Blake MD 12/19/24 11:34:
#Traumatic hip Fx
#Underweight
#Acute blood loss anemia
Original Note:
Today's Communication/Plan
-
PT/OT and d/c depending on reccs
trial of void
Assessment / Plan
Assessment / Plan
84yo F with no significant PMHX came after the fall when she lost balance (without vertigo or dizziness) in her kitchen. She did not have prodrome or syncope. found L hip femoral neck Fx, L hip hemiarthroplasty by Ortho done on 12/18/24
A/P:
#L hip femoral Fx
Ortho: s/p hemiarthroplasty
Pain mgmt
PT/OT
Patient without known cardiac disease, non-smoker, EKG showed possible pulmonary disease pattern, so has low-moderate risk for intermediate risk procedure, needs Chest XR, but will not preclude surgical intervention, can go for procedure without
additional tests or changes in mgmt
#L1 compression Fx, old
PT/OT
Outpatient DEXA for osteoporosis assessment with PCP
#Leukocytosis
stress-induced
resolved
#PostOP anemia
mild
expected
follow trend
#Acute urinary retention
2/2 pain meds
TOV post OP
#Hypokalemia
replete and follow
#elevated BP without diagnosis of HTN
follow trend while inpatient as on admission elevated most likely 2/2 pain
DVT ppx as per ortho ASA
Full code
I have spent at least 56min reviewing chart, test results, communication with consultants and providing direct patient care
Anticipated Discharge: Within 24 hours
Subjective/Interval History
-
Date of Service: December 19, 2024
Objective Data
-
Labs:
Laboratory Results
12/19/24
05:05
WBC 10.6
Hgb 10.8 L
Hct 28.2 L
Plt Count 147
Sodium 137
Potassium 3.4 L
Chloride 99
Carbon Dioxide 30
BUN 16
Creatinine 0.7
Glucose 113 H
Calcium 8.8
Total Bilirubin 1.1
AST 28
ALT 22
Alkaline Phosphatase 45
Vital Signs:
Vital Signs
Temp Pulse Resp BP Pulse Ox
98.5 F 89 16 124/73 95
12/19/24 07:05 12/19/24 07:05 12/19/24 07:05 12/19/24 07:05 12/19/24 07:05
I&O
12/18/24 12/19/24 12/20/24
06:59 06:59 06:59
Intake Total 200 / 200
Output Total 425 / 425
Balance -225 / -225
--- NOTE | 2024-12-19 12:02 | CM ---
Addendum entered by Ellen Salazar 12/19/24 15:32:
PT/OT recs SNF
Discussed with pt - reviewing choice list. Reports will be visiting - would like input
CM will f/u with pt
Plan - anticipate SNF when bed/auth obtained
Original Note:
Chart reviewed; met with pt
POD #1 left hip hemiarthroplasty
PT/OT evals pending
Spoke with pt - discussed poss SNF/rehab - given PAC list to review
Will need auth
Plan - TBD based on PT/OT recs
[2024-12-19 14:50] VITALS: BP 110/73; PULSE 101; O2SAT 94
[2024-12-19 15:43] VITALS: BP 117/79
[2024-12-19] MEDS: ROXICODONE 5 MG PO (16:30)
[2024-12-19] MEDS: SENOKOT PO ×2 (20:02)
[2024-12-19] MEDS: COLACE PO ×2 (20:02)
[2024-12-19] MEDS: ROXICODONE 10 MG PO (22:11)
[2024-12-19 23:45] VITALS: BP 128/87
[2024-12-20] MEDS: TYLENOL PO ×2 (00:10→23:12)
[2024-12-20] MEDS: TYLENOL 650 MG PO ×5 (03:39→23:12)
[2024-12-20] MEDS: ROXICODONE 10 MG PO (04:18)
[2024-12-20] MEDS: ZOFRAN 4 MG IV (05:33)
[2024-12-20 06:36] LABS: Hematocrit 35.7 % (37.0-47.0)
[2024-12-20 07:09] VITALS: BP 101/57
--- NOTE | 2024-12-20 08:02 | W.PN.ORTHO ---
Today's Communication / Plan
-
POD#2 left hip hemiarthroplasty under the direction of Dr. Waldron
--WBAT LLE. Ambulate with walker
--Posterior hip precautions x6 weeks
--PT/OT
--Recommend aspirin 325mg daily for DVT prophylaxis x4 weeks postop
--Maintain dressing until postop appointment
--Continue with pain management as needed. Apply ice as needed
--Case management consult for discharge planning
--Follow up outpatient 2 weeks postop
--Patient is orthopedically stable postop. Orthopedics will sign off at the time. Please reach out with any questions
Assessment
.
Distal Motor Intact: Yes
Dressing:
Clean, dry and intact.
Plan
.
Surgery / Date: 12/18/[address] Waldron
DVT Prophylaxis: Aspirin
Activity:
Out of bed.
PT/OT
Subjective
.
.:
Patient resting comfortably in bed. She reports some discomfort overnight
Vital Signs and Labs
.
Vital Signs and Labs:
Lab Results
12/20/24 05:09
12/19/24 05:05
Temp Pulse Resp BP Pulse Ox
98.4 F 100 16 128/87 95
12/19/24 23:45 12/19/24 23:45 12/19/24 23:45 12/19/24 23:45 12/19/24 23:45
Physical Exam
-
Directed exam of left hip reveals surgical dressing in place and is clean, dry, and intact. mild edema and tenderness to lateral hip. thigh is soft and compressible. ROM decreased. able to plantarflex/dorsiflex the ankle. calf soft and nontender.
NVI distally
[2024-12-20 08:09] VITALS: BP 101/57
[2024-12-20] MEDS: ASPIRIN 325 MG PO (08:13)
[2024-12-20] MEDS: COLACE 100 MG PO (08:13)
[2024-12-20] MEDS: SENOKOT 17.2 MG PO (08:13)
[2024-12-20 09:08] VITALS: BP 88/61
--- NOTE | 2024-12-20 11:37 | W.PN.HOSP.TC ---
Today's Communication/Plan
-
dc to rehab when bed available
Assessment / Plan
Assessment / Plan
84yo F with no significant PMHX came after the fall when she lost balance (without vertigo or dizziness) in her kitchen. She did not have prodrome or syncope. found L hip femoral neck Fx, L hip hemiarthroplasty by Ortho done on 12/18/24, medically
stable for d/c to rehab as recommended by PT/OT, CM aware
A/P:
#L hip femoral Fx
Ortho: s/p hemiarthroplasty
Pain mgmt
PT/OT
Patient without known cardiac disease, non-smoker, EKG showed possible pulmonary disease pattern, so has low-moderate risk for intermediate risk procedure, needs Chest XR, but will not preclude surgical intervention, can go for procedure without
additional tests or changes in mgmt
#L1 compression Fx, old
PT/OT
Outpatient DEXA for osteoporosis assessment with PCP
#Leukocytosis
stress-induced
resolved
#PostOP anemia
mild
expected
follow trend
#Acute urinary retention
2/2 pain meds
TOV post OP
#Hypokalemia
replete and follow
#elevated BP without diagnosis of HTN
follow trend while inpatient as on admission elevated most likely 2/2 pain
DVT ppx as per ortho ASA
Full code
I have spent at least 56min reviewing chart, test results, communication with consultants and providing direct patient care
Anticipated Discharge: Within 24 hours
Subjective/Interval History
-
Date of Service: December 20, 2024
Objective Data
-
Labs:
Laboratory Results
12/20/24
05:09
Hgb 12.0
Hct 35.7 L
Vital Signs:
Vital Signs
Temp Pulse Resp BP Pulse Ox
97.6 F 75 22 88/61 93
12/20/24 07:09 12/20/24 09:08 12/20/24 07:09 12/20/24 09:08 12/20/24 07:09
I&O
12/19/24 12/20/24 12/21/24
06:59 06:59 07:59
Intake Total 200 / 200
Output Total 425 / 425
Balance -225 / -225
Review of Systems
-
History Source: Patient
All other systems: Reviewed and negative
Physical Exam
-
General: Comfortable
GI: Soft, Nontender and Nondistended
Neuro: Awake, Alert, Oriented and AO x 3
Psych: Calm
--- NOTE | 2024-12-20 12:07 | CM ---
Patient seen at bedside with
options of SNF - would like [facility], [place] & [facility]
Will enter referrals in [facility]
WILL NEED AUTHORIZATION
PLAN: SNF, pending bed availability, will need ins auth
[2024-12-20 15:35] VITALS: BP 104/70
[2024-12-20 23:12] VITALS: BP 147/96
[2024-12-20] MEDS: SENOKOT PO (23:12)
[2024-12-20] MEDS: COLACE PO (23:12)
[2024-12-20] MEDS: ROXICODONE 5 MG PO (23:25)
[2024-12-21] MEDS: TYLENOL PO ×4 (05:00→19:53)
[2024-12-21] MEDS: ROXICODONE 5 MG PO ×2 (05:37→17:38)
[2024-12-21] MEDS: TYLENOL 650 MG PO ×2 (05:37→08:38)
[2024-12-21 08:19] VITALS: BP 116/71
[2024-12-21] MEDS: ASPIRIN 325 MG PO (08:38)
[2024-12-21] MEDS: COLACE 100 MG PO ×2 (08:39→19:23)
[2024-12-21] MEDS: SENOKOT 17.2 MG PO ×2 (08:39→19:23)
--- NOTE | 2024-12-21 09:27 | W.PN.HOSP.TC ---
Today's Communication/Plan
-
CM for rehab
Assessment / Plan
Assessment / Plan
84yo F with no significant PMHX came after the fall when she lost balance (without vertigo or dizziness) in her kitchen. She did not have prodrome or syncope. found L hip femoral neck Fx, L hip hemiarthroplasty by Ortho done on 12/18/24, medically
stable for d/c to rehab as recommended by PT/OT, CM aware
A/P:
#L hip femoral Fx
Ortho: s/p hemiarthroplasty
Pain mgmt
PT/OT
Patient without known cardiac disease, non-smoker, EKG showed possible pulmonary disease pattern, so has low-moderate risk for intermediate risk procedure, needs Chest XR, but will not preclude surgical intervention, can go for procedure without
additional tests or changes in mgmt
#L1 compression Fx, old
PT/OT
Outpatient DEXA for osteoporosis assessment with PCP
#Leukocytosis
stress-induced
resolved
#PostOP anemia
mild
expected
follow trend
#Acute urinary retention
2/2 pain meds
TOV post OP
#Hypokalemia
replete and follow
#elevated BP without diagnosis of HTN
follow trend while inpatient as on admission elevated most likely 2/2 pain
DVT ppx as per ortho ASA
Full code
I have spent at least 56min reviewing chart, test results, communication with consultants and providing direct patient care
Anticipated Discharge: 24 - 48 hours
Subjective/Interval History
-
Date of Service: December 21, 2024
Objective Data
-
Vital Signs:
Vital Signs
Temp Pulse Resp BP Pulse Ox
98.7 F 94 16 116/71 96
12/21/24 08:19 12/21/24 08:19 12/21/24 08:19 12/21/24 08:19 12/21/24 08:19
I&O
12/20/24 12/21/24 12/22/24
05:59 06:59 06:59
Intake Total
Output Total
Balance
Review of Systems
-
History Source: Patient
All other systems: Reviewed and negative
Physical Exam
-
General: No Apparent Distress
Musculoskeletal: Other (L hip with dressing without swelling or bruising)
Neuro: Awake, Alert, Oriented and AO x 3
Psych: Calm
[2024-12-21 11:01] VITALS: BP 151/90; PULSE 82; O2SAT 95
[2024-12-21 15:43] VITALS: BP 127/83
[2024-12-21 22:12] VITALS: BP 148/90
[2024-12-22] MEDS: ROXICODONE 5 MG PO (00:02)
[2024-12-22] MEDS: TYLENOL 650 MG PO ×4 (01:13→11:46)
[2024-12-22 07:28] VITALS: BP 167/108
[2024-12-22] MEDS: SENOKOT 17.2 MG PO (08:33)
[2024-12-22] MEDS: ASPIRIN 325 MG PO (08:33)
[2024-12-22] MEDS: COLACE 100 MG PO (08:34)
--- NOTE | 2024-12-22 10:47 | CM ---
Addendum entered by Ellen Salazar 12/22/24 14:34:
Transport at 5:15PM
[facility] at made aware
Pt and updated
Addendum entered by Ellen Salazar 12/22/24 13:42:
Called to obtain auth. Spoke with Sabrina
Reviewed clinicals
Pt approved for 5 days - start date 12/22
NRD 12/26 - call [phone] to review clinical
Auth # - [id number]
Information given to [facility] at
Plan - transfer to [facility]
R - [phone]
F - [phone]
Addendum entered by Ellen Salazar 12/22/24 12:38:
[facility] can accept
Spoke with pt and her at bedside - chose [facility]
Will need covid prior to d/c - hospitalist made aware
Will initiate auth
NPI - [id number]
Dr Patrice Montana NPI - [id number]
Original Note:
Chart reviewed
Pt for SNF options obtained
[facility] - can accept pending bed availability
[facility] - spoke with [facility] - will review
[facility] - LM with Wandy requesting review of referal
Will need auth
Plan - snf when bed/auth obtained and medically stable
[2024-12-22 12:40] VITALS: BP 164/103
--- NOTE | 2024-12-22 12:42 | PTCARENOTE ---
patient BP has been in 160s/100s. She denies headache/chest pain. Pain is adequately managed with scheduled Tylenol. aware. NNO
[2024-12-22 12:55] VITALS: BP 164/103; PULSE 99; O2SAT 99
--- NOTE | 2024-12-22 12:56 | W.PN.HOSP.TC ---
Addendum entered and electronically signed by Ran Nunn MD 12/22/24 17:16:
[id number]
Original Note:
Today's Communication/Plan
-
asa 325
ortho recs, f/u outpt
--Posterior hip precautions x6 weeks
--PT/OT
--Recommend aspirin 325mg daily for DVT prophylaxis x4 weeks postop
--Maintain dressing until postop appointment
--Continue with pain management as needed. Apply ice as needed
--Follow up outpatient 2 weeks postop
-DEXA scan outpt
f/u cbc and bmp outpt
Assessment / Plan
Assessment / Plan
84yo F with no significant PMHX came after the fall when she lost balance (without vertigo or dizziness) in her kitchen. She did not have prodrome or syncope. found L hip femoral neck Fx, L hip hemiarthroplasty by Ortho done on 12/18/24, medically
stable for d/c to rehab as recommended by PT/OT, CM aware
A/P:
#L hip femoral Fx
Ortho: s/p hemiarthroplasty
Pain mgmt
PT/OT
Follow-up orthopedics outpatient
Patient without known cardiac disease, non-smoker, EKG showed possible pulmonary disease pattern, so has low-moderate risk for intermediate risk procedure, needs Chest XR, but will not preclude surgical intervention, can go for procedure without
additional tests or changes in mgmt
--Posterior hip precautions x6 weeks
--PT/OT
--Recommend aspirin 325mg daily for DVT prophylaxis x4 weeks postop
--Maintain dressing until postop appointment
--Continue with pain management as needed. Apply ice as needed
--Follow up outpatient 2 weeks postop
#L1 compression Fx, old
PT/OT
Outpatient DEXA for osteoporosis assessment with PCP
#Leukocytosis
stress-induced
resolved
f/u cbc outpt
#PostOP anemia
mild
expected
follow trend
f/u cbc in 2-3 days
#Acute urinary retention
2/2 pain meds
TOV post OP
#Hypokalemia
replete and follow
#elevated BP without diagnosis of HTN
follow trend while inpatient as on admission elevated most likely 2/2 pain
DVT ppx as per ortho ASA
Full code
More than 30 minutes spent in discharge including
Final examination of the patient
Summarizing hospital stay
Instructions for continuing care to all relevant caregivers
Preparation of discharge records, prescriptions, and referral forms
Total time spent (37 in minutes):
Anticipated Discharge: Today
Subjective/Interval History
-
Date of Service: December 22, 2024
No acute events overnight
Objective Data
-
Vital Signs:
Vital Signs
Temp Pulse Resp BP Pulse Ox
97.7 F 96 18 164/103 95
12/22/24 07:28 12/22/24 07:28 12/22/24 07:28 12/22/24 12:40 12/22/24 07:28
I&O
12/21/24 12/22/24 12/23/24
06:59 06:59 06:59
Intake Total 540 / 540 180 / 180
Balance 540 / 540 180 / 180
Review of Systems
-
History Source: Patient
All other systems: Not reviewed unless documented
Data Reviewed
-
Diagnostic Radiology: Report Reviewed by me
Labs: Labs Reviewed by me
--- NOTE | 2024-12-22 12:58 | W.DS.TRANS ---
DC Summary - Engineering Project Manager
-
Discharge Instructions:
Discharge Diagnosis/Procedures #L hip femoral Fx
Diet Low Cholesterol,Low Fat
Activity As tolerated
Blood Work cbc and bmp in 1-2 days
Others Tests #L1 compression Fx, old: Outpatient DEXA for
osteoporosis assessment with PCP
Instructions:
Stand-Alone Forms:
Changes to Home Medications: Yes
Discharge Medications:
DC Medications w/original date entered in [facility]
lutein 20 mg tablet 20 mg PO DAILY 12/18/24
polyethylene glycol 3350 17 gram oral powder packet (Miralax) 17 g PO DAILY Constipation 12/18/24
sennosides 8.6 mg tablet (senna) 17.2 mg PO HS Constipation 12/18/24
therapeutic multivitamin 1 tab PO DAILY Supplement 12/18/24
aspirin 325 mg tablet 325 mg PO DAILY #0 tabs 12/22/24
oxycodone-acetaminophen 5 mg-325 mg tablet 1 tab PO TIDPRN PRN back pains #9 tabs 12/22/24
Home Medication Changes
aspirin 325 mg tablet 325 mg PO DAILY #0 tabs 12/22/24
oxycodone-acetaminophen 5 mg-325 mg tablet 1 tab PO TIDPRN PRN back pains #9 tabs 12/22/24
Pending Results: No
[2024-12-22 13:16] LABS: COVID-19 Antigen Negative (Negative)
--- NOTE | 2024-12-22 14:10 | PTCARENOTE ---
patient needs frequent fall safety reminders and verbal cues due to being very forgetful. all due medications administered. report given to [facility]
[2024-12-22 15:06] VITALS: BP 133/86
== END 2024-12-22 18:00 | DRG 522 ==
LOC: 2 SOUTH 06:32
PROVIDERS: Internal Medicine; Orthopaedic Surgery; ADMITTING PHYSICIAN Internal Medicine; ATTENDING PHYSICIAN Internal Medicine; CONSULT PHYSICIAN Orthopaedic Surgery; EMERGENCY PHYSICIAN Emergency Medicine
PROC: 0SRS0J9 Replacement of Left Hip Joint, Femoral Surface with Synthetic Substitute, Cemented, Open Approach (ICD-10-PCS; 2024-12-18)
DX: S72.092A Other fracture of head and neck of left femur, initial encounter for closed fracture (principal); M80.08XA Age-related osteoporosis with current pathological fracture, vertebra(e), initial encounter for fracture; D62 Acute posthemorrhagic anemia; Z68.1 Body mass index [BMI] 19.9 or less, adult; W18.39XA Other fall on same level, initial encounter; E87.6 Hypokalemia; D72.829 Elevated white blood cell count, unspecified; R63.6 Underweight
CPT/HCPCS: 71045; 73502; 80053; 83735; 85014; 85018; 85025; 86850; 86900; 86901; 87811; 93005; 96374; 97116; 97163; 97167; 97535; 99285; C1713; C1776